=== PATIENT | female | born 1995 | race Caucasian/White ===

== ENCOUNTER 2020-03-08 21:05 | Emergency (ER) | payer SELFPAY ==
[~2020-03-08] VITALS: Ht 162.6 cm; Wt 81.0 kg
[2020-03-08] MEDS ORDERED: HYDROCODONE/ACETAMINOPHEN 5/325MG TABLET PO ONE (21:30)
[2020-03-08 23:29] VITALS: BP 136/91
== END 2020-03-09 00:43 | disposition home or self-care (01) ==
LOC: ER 23:55
DX: M79.641 Pain in right hand (principal); M25.531 Pain in right wrist
CPT/HCPCS: 73110; 73130; 81025; 99284